=== PATIENT | female | born 1980 | race Caucasian/White ===

== ENCOUNTER 2017-09-21 14:27 | Emergency (ER) | payer OTHER ==
[2017-09-21 14:41] VITALS: RESP 18; TEMP 98.2
--- NOTE | 2017-09-21 16:46 | EDPHY ---
H & P HPI/ROS: Chief complaint: Left hand injury History of present illness: This is a 37-year-old female who presents to the emergency department for left hand injury. Patient states she slipped on the ice and struck her hand against a car. Since then she has had soreness to the inner aspect of the hand and wrist. Worse with touching the region and movement. She denies other associated signs or symptoms including no report of open wounds, no abnormal coolness or paresthesias to the hand or arm. No other injuries reported. Smoking Status: Never smoked Physical Exam: General: Alert, nontoxic Skin: No lesions consistent with trauma to the left upper extremity Musculoskeletal: Mild tenderness along the medial aspect of the hand and wrist. No crepitus or bony deformity. The rest the hand, wrist and forearm are nontender. No snuffbox tenderness. She is moving all joints in all digits of the left hand well, moving the wrist in all fel[place] well, moving the elbow well. Vascular: Radial pulse 2 +. Capillary refill brisk in the digits of the left hand. Neurologic: Sensation intact throughout the left hand and arm. Constitutional: Initial Vital Signs Temperature (C) 36.8 C 09/21/17 14:40 Heart Rate 82 09/21/17 14:40 Respiratory Rate 18 09/21/17 14:40 Blood Pressure 117/82 H 09/21/17 14:40 O2 Sat (%) 95 09/21/17 14:40 O2 Delivery Mode Room Air Allergies/Adverse Reactions: ciprofloxacin [From Cipro] Allergy (Verified 09/21/17 14:40) codeine Allergy (Verified 09/21/17 14:40) hydromorphone [From Dilaudid] Allergy (Verified 09/21/17 14:40) metronidazole [From Flagyl] Allergy (Verified 09/21/17 14:40) povidone-iodine [From Betadine] Allergy (Verified 09/21/17 14:40) soap [From Betadine] Allergy (Verified 09/21/17 14:40) sulfur dioxide Allergy (Verified 09/21/17 14:40) tetracycline Allergy (Verified 09/21/17 14:40) contrast dye Allergy (Intermediate, Uncoded 06/16/12 11:27) Hives MDM/Departure - MDM Imaging Results: Imaging Impressions Hand X-Ray 09/21/17 14:42 Impression: No acute osseous abnormality seen left hand.. Imaging: I viewed and interpreted images myself Procedures: Procedure: Splint placement. A Velcro wrist splint was applied. After application of the splint I returned and re-examined the patient. The splint was adequately immobilizing the joint and distal to the splint the patient's circulation and sensation was intact. ED Course/Re-evaluation: Patient seen under the supervision of my secondary supervising physician Dr. Catracho Calles. Patient presents to the emergency department for left hand injury. The hand is neurovascularly intact. She has good musculoskeletal control. X-rays negative. Contusion versus sprain or strain. She is placed in a Velcro wrist splint for rest in comfort. Home care is discussed. She is asked to follow up with worker's compensation or hand doctor for recheck. Return precautions are given. Differential Diagnosis: Included but not limited to contusion, sprain or strain, bony fracture, joint dislocation - Depart Disposition: Home, Routine, Self-Care Clinical Impression: Wrist sprain Qualifiers: Encounter type: initial encounter Laterality: left Qualified Code(s): S63.502A - Unspecified sprain of left wrist, initial encounter Condition: Good Instructions: Wrist Sprain (ED) Additional Instructions: Follow-up with worker's compensation or a hand doctor this week for recheck Use Tylenol as directed as needed for pain Ice the injury, 20 min on at least 3 times daily for the next 3 days, no heat until after 72 hr Use Velcro wrist splint for rest If symptoms worsen or new symptoms develop return to the emergency room for recheck Referrals: ESTELLA NAIK [Primary Care Provider] - As per Instructions Jassi Brown MD [Medical Doctor] - As per Instructions
[2017-09-21 17:02] VITALS: BP 121/86; PULSE 77; O2SAT 96
== END 2017-09-21 17:02 | disposition home or self-care (01) ==
DX: S63.502A Unspecified sprain of left wrist, initial encounter (principal); W01.198A Fall on same level from slipping, tripping and stumbling with subsequent striking against other object, initial encounter
CPT/HCPCS: L3807